=== PATIENT | male | born 1955 | race African-American/Black ===

== ENCOUNTER → 2024-10-25 | Outpatient (CLI) | payer MEDICARE ==
--- NOTE | 2024-10-25 09:05 | MR ---
EXAMINATION TYPE: MR Prostate wo/w con DATE OF EXAM: 10/25/2024 8:13 AM COMPARISON: None. CLINICAL INDICATION: Male, 69 years old with history of C61 MALIGNANT NEOPLASM OF PROS; Prostate canc er. TECHNIQUE: Multi-planar, multi-sequence imaging of the pelvis is performed prior to and following the uncomplicated administration of bolus intravenous gadolinium. IV Contrast: 8 mL Gadobutrol Interpretive Criteria: PI-RADS v2.1 SERUM PSA: 09-23-24 = 7.9 SURGICAL PATHOLOGY: 03/03/2024, positive left apex and left mid lateral Maldonado 4+3=7. FINDINGS: Prostatic dimensions: 5.7 x 6.7 x 5.0 cm. Ellipsoid Volume:99.98 (PSA density=0.08 ng/mL/mL) CENTRAL GLAND (Central and Transition Zones/CZ+TZ): Partially circumscribed lesion which is low ADC is not significantly higher signal on DWI in the righ t anterior central gland possibly representing BPH nodule measuring up to 18 x 12 mm. No discrete enh ancement separate from surrounding prostate gland. There is some heterogenous diffuse enhancement wit hin the central gland. No fistula isn't visualized. (PI-RADS 3) PERIPHERAL ZONE (PZ): Thin due to BPH of the central gland. No evidence of masslike abnormality, or localized perfusional h ypervascularity, to further suggest a focus of clinically significant prostate cancer. (PI-RADS 2) SEMINAL VESICLES (SV): Symmetric and unremarkable. PERIPROSTATIC TISSUES: Unremarkable. LYMPH NODES: No enlarged pelvic lymph node. REMAINING PELVIS: Bladder wall is within normal limits given distention. No abnormal free or organized intrapelvic fluid collection. No pathologic bowel dilation or mural thickening. Left fat containing inguinal hernia OSSEOUS STRUCTURES: No suspicious osseous abnormality. Heterogenous bone marrow including the right pubic symphysis. No d iscrete lesions identified. Left lower abdominal tubular structure possibly representing a large left common iliac artery aneurys m measuring up to 6.9 x 7.5 cm. Bifemoral bypass also present. IMPRESSION: 1. PI-RADS 3 lesion in the right central gland mid gland versus BPH nodule measuring 18 x 12 mm. 2. Substantial BPH, estimated gland volume 99.98 mL. 3. No suspicious osseous lesion. No lymphadenopathy. No evidence of prostate adenocarcinoma involving the periprostatic tissues. 4. Large left common iliac artery aneurysm suggested, no priors are available for comparison. CTA abd omen and pelvis recommended for evaluation of if not already performed. [facility], , 10/25/2024 9:03 AM
== END | disposition home or self-care (01) ==
LOC: RADMRIMAIN 06:53
PROVIDERS: ATTEND Urology
DX: C61 Malignant neoplasm of prostate (principal)
CPT/HCPCS: 72197; A9585

== ENCOUNTER → 2024-11-29 | Outpatient (CLI) | payer MEDICARE ==
[2024-11-29 19:13] LABS: BUN/Creat Ratio 13.88 Ratio (12.00-20.00); Blood Urea Nitrogen 11.1 mg/dL (9.0-27.0); Calcium 10.2 mg/dL (8.7-10.3); Carbon Dioxide 25.7 mmol/L (21.6-31.8); Chloride 105 mmol/L (96-109); Glucose 104 mg/dL (70-110); Potassium 4.9 mmol/L (3.5-5.5); Sodium 140 mmol/L (135-145)
[2024-11-29 20:03] LABS: Basophils # (A) 0.02 X 10*3/uL (0.00-0.10); Basophils % (A) 0.4 %; Eosinophils # (A) 0.06 X 10*3/uL (0.04-0.35); Eosinophils % (A) 1.2 %; HCT 46.8 % (39.6-50.0); HGB 14.7 g/dL (13.0-17.0); Lymphocytes # (A) 1.69 X 10*3/uL (0.90-5.00); Lymphocytes % (A) 34.3 %; MCH 26.3 pg (27.0-32.0); MCHC 31.4 g/dL (32.0-37.0); MCV 83.7 FL (80.0-97.0); Mean Platelet Volume 11.1 FL (9.5-12.2); Monocytes % (A) 10.1 %; NRBC Per 100 WBC 0 X 10*3/uL (0.00-0.01); Neutrophils # (A) 2.65 X 10*3/uL (1.80-7.70); Neutrophils % (A) 53.8 %; Platelet Count 242 X 10*3/uL (140-440); RBC 5.59 X 10*6/uL (4.40-5.60); RDW 15.1 % (11.5-14.5); WBC 4.93 X 10*3/uL (4.50-10.00)
== END | disposition home or self-care (01) ==
LOC: LABPAT 12:37
PROVIDERS: ATTEND Urology
DX: Z01.812 Encounter for preprocedural laboratory examination (principal); C61 Malignant neoplasm of prostate
CPT/HCPCS: 80048; 85025

== ENCOUNTER 2024-12-15 12:49 | Day surgery (SDC) | payer MEDICARE ==
--- NOTE | 2024-12-13 20:56 | P.GSHP ---
History of Present Illness H&P Date: 12/13/24 Chief Complaint: Prostate cancer The patient is a 69-year-old male diagnosed with prostate cancer in February 2024 (Maldonado 4+3). The patient is concerned about erectile dysfunction and thus chose to proceed with active surveillance. However, I have advised him that he is a suboptimal candidate for this. MRI of the prostate reveals a prostate volume of 100 cc, with a PI-RADS 3 lesion seen within the right central gland. - Cardiovascular Cardiovascular: Reports high blood pressure - Genitourinary (Male) Genitourinary: Reports nocturia Past Medical History Past Medical History: Cancer, Heart Failure, Diabetes Mellitus, Deep Vein Thrombosis (DVT), Hyperlipidemia, Hypertension, Myocardial Infarction ([place]) Additional Past Medical History / Comment(s): recent echo, hx heart failure before CABG per . prostate cancer cells Last Myocardial Infarction Date:: before 2008 History of Any Multi-Drug Resistant Organisms: None Reported Past Surgical History: Coronary Bypass/CABG, Heart Catheterization With Stent Additional Past Surgical History / Comment(s): colonoscopy Past Anesthesia/Blood Transfusion Reactions: No Reported Reaction Date of Last Stent Placement:: 2020 [facility] Smoking Status: Former smoker - Past Family History Brother(s) Family Medical History: Myocardial Infarction ([place]) Additional Family Medical History / Comment(s): another brother - radiation for cancer( prostate) Sister(s) Additional Family Medical History / Comment(s): , heart surgery Mother Family Medical History: Cancer Additional Family Medical History / Comment(s): breast Father Family Medical History: Cancer Additional Family Medical History / Comment(s): myeloma Medications and Allergies Home Medications Medication Instructions Recorded Confirmed Type Aspirin 81 mg PO DAILY 12/13/24 12/13/24 History Atorvastatin [Lipitor] 80 mg PO HS 12/13/24 12/13/24 History Ezetimibe [Zetia] 10 mg PO DAILY 12/13/24 12/13/24 History Metoprolol Succinate (ER) [Toprol 12.5 mg PO 1200 12/13/24 12/13/24 History Xl] Sacubitril/Valsartan [Entresto 97 1 tab PO DAILY 12/13/24 12/13/24 History mg-103 mg Tablet] metFORMIN HCL [Metformin HCl] 1,000 mg PO BID 12/13/24 12/13/24 History tadalafiL [Tadalafil] 20 mg PO DIRECTED PRN 12/13/24 12/13/24 History Allergies Allergy/AdvReac Type Severity Reaction Status Date / Time No Known Allergies Allergy Verified 12/13/24 14:27 Surgical - Exam - General well developed, well nourished, no distress - Respiratory normal respiratory effort - Rectum Rectum: normal sphincter tone, no masses, other (Prostate moderately enlarged but smooth) - Psychiatric oriented to time, oriented to person, oriented to place, speech is normal, memory intact Assessment and Plan (1) Malignant neoplasm of prostate Status: Acute Code(s): C61 - MALIGNANT NEOPLASM OF PROSTATE SNOMED Code(s): 560691129 Plan: The patient will undergo MRI-Ultrasound fusion transrectal biopsies of the prostate. The procedure has been reviewed in detail with the patient. He has been made aware of potential risks, which include anesthesia, bleeding, and infection.
[~2024-12-15 12:49] MED LIST: HYDROmorphone 0.5 MG/0.5 ML SYRINGE IVP PRN; LIDOCAINE 1% (10MG/ML) FOR IV START INTRADERMA PRN; MIDAZOLAM 2 MG/2 ML VIAL IV PRN; fentaNYL (PF) 50 MCG/ML 2 ML AMP IVP PRN
[2024-12-15] MEDS: IV FLUID CONTINUATION 1,000 ML IV ONE (13:53)
[2024-12-15 14:10] VITALS: TEMP 96.5
[2024-12-15 14:34] LABS: Glucose,Whole Blood 110 mg/dL (70-110)
[2024-12-15] MEDS: ONDANSETRON 4 MG/2 ML VIAL IVP ONE (14:35)
[2024-12-15] MEDS: DEXAMETHASONE SOD PHOSPHATE 4 MG/ML 1 ML VIAL IV ONE (14:35)
[2024-12-15] MEDS: LACTATED RINGERS 1,000 ML IV SCH (14:35)
[2024-12-15] MEDS: GENTAMICIN 40 MG/ML 2 ML VIAL IM PRN (14:39)
[2024-12-15] MEDS ORDERED: PROPOFOL 10 MG/ML 20 ML VIAL IV ONE (15:21)
--- NOTE | 2024-12-15 15:44 | P.OP ---
Date of Procedure: 12/15/24 Preoperative Diagnosis: Adenocarcinoma of the prostate Postoperative Diagnosis: Same Procedure(s) Performed: Transrectal ultrasound-guided MRI fusion biopsies of the prostate Anesthesia: MAC Surgeon: Jameson De Luna Estimated Blood Loss (ml): 5 IV fluids (ml): 300 Pathology: other (Prostate biopsies) Condition: stable Disposition: PACU Indications for Procedure: The patient is a 69-year-old male diagnosed with prostate cancer in February 2024 (Maldonado 4+3). The patient is concerned about erectile dysfunction and thus chose to proceed with active surveillance. However, I have advised him that he is a suboptimal candidate for this. MRI of the prostate reveals a prostate volume of 100 cc, with a PI-RADS 3 lesion seen within the right central gland. Operative Findings: 3 biopsies obtained from the target lesion in addition to 12 template biopsies. Description of Procedure: The patient was taken to the operating room and placed in the left lateral decubitus position. PRANEETH revealed the prostate to be enlarged but smooth. The prollie transrectal ultrasound probe was placed intrarectally. It was then placed within the stand of the [employer] MRI/TRUS Fusion for Prostate Biopsy system. The prostate was imaged in both the axial and sagittal planes, revealing a prostate volume of 77 mL. Using the Biopty gun, 3 biopsies were obtained from the right transitional zone target lesion. The remaining 12 biopsies of the peripheral zone were obtained utilizing a standard template. Once the procedure was completed, the ultrasound probe was removed. The patient tolerated the procedure well was taken to the recovery room stable condition.
[2024-12-15 15:52] VITALS: RESP 16
[2024-12-15 16:16] VITALS: BP 161/96; PULSE 83
== END 2024-12-15 16:46 | disposition home or self-care (01) ==
LOC: OR 12:49
PROVIDERS: ATTEND Urology
DX: C61 Malignant neoplasm of prostate (principal); N40.0 Benign prostatic hyperplasia without lower urinary tract symptoms; I11.0 Hypertensive heart disease with heart failure; I50.9 Heart failure, unspecified; I25.10 Atherosclerotic heart disease of native coronary artery without angina pectoris; I25.2 Old myocardial infarction; Z95.1 Presence of aortocoronary bypass graft; Z95.5 Presence of coronary angioplasty implant and graft; E11.9 Type 2 diabetes mellitus without complications; E78.5 Hyperlipidemia, unspecified; K21.9 Gastro-esophageal reflux disease without esophagitis; Z79.82 Long term (current) use of aspirin; Z79.84 Long term (current) use of oral hypoglycemic drugs; Z79.899 Other long term (current) drug therapy; Z86.718 Personal history of other venous thrombosis and embolism; Z87.891 Personal history of nicotine dependence
CPT/HCPCS: 55700; 88305; J1580; J1100; J2405; J2704

== ENCOUNTER → 2025-02-16 | Outpatient (CLI) | payer MEDICARE ==
[2025-02-16 07:59] LABS: African American GFR (CKD) >90 (>60 ml/min/1.73 sqM); Blood Urea Nitrogen 12 mg/dL (9-20); Non-African American GFR(CKD) >90 (>60 ml/min/1.73 sqM)
--- NOTE | 2025-02-16 09:46 | CT ---
EXAMINATION TYPE: CT angio abdomen pelvis CT DLP: 1712 mGycm, Automated exposure control for dose reduction was used. DATE OF EXAM: 02/16/2025 9:24 AM COMPARISON: MR prostate 10/25/2024 CLINICAL INDICATION:Male, 69 years old with history of I72.3 ANEURYSM OF ILIAC ARTERY; High blood pre ssure TECHNIQUE: Multiple thin slice sub-millimeter images were obtained through the abdomen and pelvis bef ore and after administration of contrast. Patient was given Isovue 370, 100 cc intravenously. 3-D r econstructed images and maximum intensity projection images were obtained of the abdomen, pelvis, and lower extremities. FINDINGS: CTA Abdomen and pelvis: Atherosclerotic plaquing is identified within the abdominal aorta. Fusiform d istal abdominal aortic aneurysm measuring up to 3.1 cm (series 9, image 95). There is marked aneurysm al dilatation of the left common iliac artery again measuring 7.7 x 7.1 cm (series 9, image 129). The re is large amount of eccentric mural thrombus. The opacified central portion of the aneurysm measure s up to 2.5 cm in diameter. Demonstrates heterogenous opacification. The origins of the superior mese nteric artery, renal arteries, inferior mesenteric artery, and celiac axis are patent. There are 2 bi lateral renal arteries. The right common iliac artery is widely patent. The right internal and braille typist al iliac arteries are patent. The right superficial and deep femoral arteries are widely patent. Ther e is a patent femoral-femoral bypass. The left internal iliac artery is patent. The left external shelley ac artery demonstrates contrast enhancement with slightly decreased attenuation compared to the right . There is focal high-grade stenosis at its origin. The visualized left superficial and deep femoral arteries are patent. VISCERA: The liver, spleen, adrenal glands, kidneys, pancreas, and gallbladder are not optimally enha nced due the arterial phase utilized. LIVER: Unremarkable GALLBLADDER AND BILE DUCTS: Layering increased densities within the lumen consistent with gallstones are present. No biliary ductal dilatation. PANCREAS: Unremarkable. SPLEEN: Unremarkable. ADRENAL GLANDS: Unremarkable. KIDNEYS AND URETERS: No evidence of hydronephrosis or renal calculus. The kidneys enhance symmetrical ly. Inferior right renal pole fat-containing 1.2 cm lesion consistent with an angiomyolipoma. PELVIS BLADDER: Small punctate layering calculi within the urinary bladder. REPRODUCTIVE: Coarse calcifications of the prostate gland are identified. Enlarged prostate gland johnathan suring 5.2 cm in transverse dimension. ABDOMEN & PELVIS STOMACH AND BOWEL: Moderate to large hiatal hernia with approximately a third of the stomach intratho racic.The appendix is within normal limits. Scattered distal colonic diverticulosis without evidence for acute diverticulitis. No focal bowel wall thickening or surrounding inflammatory changes. No evid ence of bowel obstruction. PERITONEUM: No evidence of pneumoperitoneum or free fluid. MUSCULOSKELETAL: No acute osseous abnormalities LYMPH NODES: No evidence for lymphadenopathy. SOFT TISSUE/ABDOMINAL WALL: Tiny fat filled umbilical hernia. Fat filled left inguinal hernia with co marga protruding its opening LOWER CHEST: Surgical clips within the anterior pericardial space. Fat filled epigastric hernia anter ior to the xiphoid process with defect measuring up to 3.4 cm in diameter. The visualized lung bases are clear. IMPRESSION: 1. Redemonstration of large left common iliac artery aneurysm measuring up to 7.7 cm. Vascular surgi miracle consultation is recommended. High-grade stenosis at the origin of the left external iliac artery. Patent femoral-femoral bypass. 2. Distal abdominal aortic aneurysm measuring up to 3.1 cm. 3. Moderate to large hiatal hernia with a third of the stomach intrathoracic. 4. Colonic diverticulosis without evidence for acute diverticulitis. 5. Cholelithiasis. 6. Prostatomegaly. 7. Urinary bladder calculi. 8. 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 [facility], , 02/16/2025 9:44 AM
== END | disposition home or self-care (01) ==
LOC: RADCTMAIN 07:15
PROVIDERS: ATTEND Internal Medicine
DX: K44.9 Diaphragmatic hernia without obstruction or gangrene (principal); K57.30 Diverticulosis of large intestine without perforation or abscess without bleeding; K80.20 Calculus of gallbladder without cholecystitis without obstruction; N21.0 Calculus in bladder; I72.3 Aneurysm of iliac artery; I71.40 Abdominal aortic aneurysm, without rupture, unspecified; N40.0 Benign prostatic hyperplasia without lower urinary tract symptoms
CPT/HCPCS: 82565; 84520; 36415; 74174; Q9967

== ENCOUNTER → 2025-04-12 | Outpatient (CLI) | payer MEDICARE ==
[2025-04-12 18:22] LABS: Basophils # (A) 0.03 X 10*3/uL (0.00-0.10); Basophils % (A) 0.5 %; Eosinophils # (A) 0.07 X 10*3/uL (0.04-0.35); Eosinophils % (A) 1.2 %; HCT 38.5 % (39.6-50.0); HGB 11.9 g/dL (13.0-17.0); Lymphocytes % (A) 30.2 %; MCH 25.9 pg (27.0-32.0); MCHC 30.9 g/dL (32.0-37.0); MCV 83.7 FL (80.0-97.0); Mean Platelet Volume 9.7 FL (9.5-12.2); Monocytes # (A) 0.74 X 10*3/uL (0.20-1.00); Monocytes % (A) 13.1 %; NRBC Per 100 WBC 0 X 10*3/uL (0.00-0.01); Neutrophils # (A) 3.07 X 10*3/uL (1.80-7.70); Neutrophils % (A) 54.6 %; Platelet Count 262 X 10*3/uL (140-440); RDW 15.9 % (11.5-14.5); WBC 5.63 X 10*3/uL (4.50-10.00)
[2025-04-12 18:57] LABS: BUN/Creat Ratio 14.11 Ratio (12.00-20.00); Blood Urea Nitrogen 12.7 mg/dL (9.0-27.0); Calcium 9.8 mg/dL (8.7-10.3); Carbon Dioxide 22.6 mmol/L (21.6-31.8); Chloride 105 mmol/L (96-109); Glucose 102 mg/dL (70-110); Potassium 4.7 mmol/L (3.5-5.5); Sodium 139 mmol/L (135-145)
== END | disposition home or self-care (01) ==
LOC: LABPAT 14:56
PROVIDERS: ATTEND Urology
DX: Z01.812 Encounter for preprocedural laboratory examination (principal); C61 Malignant neoplasm of prostate
CPT/HCPCS: 80048; 85025

== ENCOUNTER 2025-04-13 08:04 | Day surgery (SDC) | payer MEDICARE ==
--- NOTE | 2025-04-12 19:46 | P.GSHP ---
History of Present Illness H&P Date: 04/12/25 Chief Complaint: Prostate cancer The patient is a 69-year-old male diagnosed with prostate cancer in February 2024 (Maldonado 4+3). The patient is concerned about erectile dysfunction and thus chose to proceed with active surveillance. However, I have advised him that he is a suboptimal candidate for this. MRI of the prostate revealed a prostate volume of 100 cc, with a PI-RADS 3 lesion seen within the right central gland. He underwent MRI fusion biopsies in November 2024. He was found to have Maldonado 7 adenocarcinoma in 4 of 13 regions. He is agreeable to radiation therapy and now comes for SpaceOAR implant to reduce the risk of radiation-induced rectal toxicity. - Cardiovascular Cardiovascular: Reports high blood pressure - Genitourinary (Male) Genitourinary: Reports nocturia Past Medical History Past Medical History: Cancer, Heart Failure, Diabetes Mellitus, Deep Vein Thrombosis (DVT), Hyperlipidemia, Hypertension, Myocardial Infarction ([place]), Prostate Disorder Additional Past Medical History / Comment(s): hx heart failure before CABG per , prostate cancer, aortic stent at [place] 03/20/25 and hospitalized overnight again 03/22/25 at [place] for constipation Last Myocardial Infarction Date:: before 2008 History of Any Multi-Drug Resistant Organisms: None Reported Past Surgical History: Coronary Bypass/CABG, Heart Catheterization With Stent Additional Past Surgical History / Comment(s): colonoscopy , aortic stent 03/20/25 Past Anesthesia/Blood Transfusion Reactions: No Reported Reaction Date of Last Stent Placement:: 2020 [facility] Smoking Status: Former smoker - Past Family History Brother(s) Family Medical History: Myocardial Infarction ([place]) Additional Family Medical History / Comment(s): another brother - radiation for cancer( prostate) Sister(s) Additional Family Medical History / Comment(s): , heart surgery Mother Family Medical History: Cancer Additional Family Medical History / Comment(s): breast Father Family Medical History: Cancer Additional Family Medical History / Comment(s): myeloma Medications and Allergies Home Medications Medication Instructions Recorded Confirmed Type Aspirin 81 mg PO DAILY 12/13/24 04/10/25 History Atorvastatin [Lipitor] 80 mg PO HS 12/13/24 04/10/25 History Ezetimibe [Zetia] 10 mg PO DAILY 12/13/24 04/10/25 History Metoprolol Succinate (ER) [Toprol 12.5 mg PO HS 12/13/24 04/10/25 History Xl] metFORMIN HCL [Metformin HCl] 1,000 mg PO BID 12/13/24 04/10/25 History tadalafiL [Tadalafil] 20 mg PO DIRECTED PRN 12/13/24 04/10/25 History Clopidogrel [Plavix] 75 mg PO DAILY 04/10/25 04/10/25 History Losartan [Cozaar] 25 mg PO DAILY 04/10/25 04/10/25 History Allergies Allergy/AdvReac Type Severity Reaction Status Date / Time No Known Allergies Allergy Verified 04/10/25 14:54 Surgical - Exam - General well developed, well nourished, no distress - Respiratory normal respiratory effort - Rectum Rectum: normal sphincter tone, no masses, other (Prostate enlarged but smooth) - Psychiatric oriented to time, oriented to person, oriented to place, speech is normal, memory intact Assessment and Plan (1) Malignant neoplasm of prostate Status: Acute Code(s): C61 - MALIGNANT NEOPLASM OF PROSTATE SNOMED Code(s): 359169092 Plan: The SpaceOar implant has been reviewed in detail with the patient. He understands that the rationale for this is to create separation between the prostate and rectum, thus reducing the risk of radiation proctitis. The material begins to breakdown 12-13 weeks following implant, and is reabsorbed by the body. Risks include anesthesia, bleeding, infection, and perineal discomfort. He understands that if the rectal wall is perforated the procedure will need to be aborted.
[~2025-04-13 08:04] MED LIST changes: -HYDROmorphone 0.5 MG/0.5 ML SYRINGE IVP PRN; -MIDAZOLAM 2 MG/2 ML VIAL IV PRN; -fentaNYL (PF) 50 MCG/ML 2 ML AMP IVP PRN
[2025-04-13] MEDS: IV FLUID CONTINUATION 1,000 ML IV ONE (09:24)
[2025-04-13] MEDS: LACTATED RINGERS 1,000 ML IV SCH (09:49)
[2025-04-13 09:50] LABS: Glucose,Whole Blood 99 mg/dL (70-110)
[2025-04-13] MEDS ORDERED: PROPOFOL 10 MG/ML 20 ML VIAL IV ONE (10:28)
[2025-04-13] MEDS ORDERED: MIDAZOLAM 2 MG/2 ML VIAL ONE (10:28)
[2025-04-13] MEDS ORDERED: fentaNYL (PF) 50 MCG/ML 2 ML AMP ONE (10:28)
[2025-04-13] MEDS: ceFAZolin 2 GM in DEXTROSE 5% IN WATER 50 ML IVPB PRN (10:34)
[2025-04-13] MEDS: LIDOCAINE 2% INJ 20 MG/ML SQ ONE (10:40)
--- NOTE | 2025-04-13 10:55 | P.OP ---
Date of Procedure: 04/13/25 Preoperative Diagnosis: Adenocarcinoma of the prostate Postoperative Diagnosis: Same Procedure(s) Performed: SpaceOAR Gel Implant Anesthesia: MAC Surgeon: Jameson De Luna Estimated Blood Loss (ml): 5 IV fluids (ml): 200 Pathology: none sent Condition: stable Disposition: PACU Indications for Procedure: The patient is a 69-year-old male diagnosed with prostate cancer in February 2024 (Maldonado 4+3). The patient is concerned about erectile dysfunction and thus chose to proceed with active surveillance. However, I have advised him that he is a suboptimal candidate for this. MRI of the prostate revealed a prostate volume of 100 cc, with a PI-RADS 3 lesion seen within the right central gland. He underwent MRI fusion biopsies in November 2024. He was found to have Maldonado 7 adenocarcinoma in 4 of 13 regions. He is agreeable to radiation therapy and now comes for SpaceOAR implant to reduce the risk of radiation-induced rectal toxicity. Operative Findings: 10 to 11 mm separation created between prostate and rectum. Description of Procedure: The patient was taken to the operating room and placed in the dorsolithotomy position, with his legs supported in Brice stirrups. The external genitalia was prepped and draped sterilely. The Klip transrectal ultrasound probe was placed intrarectally. The prostate was imaged. The probe was then placed within the stabilizing stand. A spinal needle was advanced under ultrasonic guidance to the level of the urogenital diaphragm, and lidocaine was used to infiltrate the tissues as the needle was withdrawn. Next, the SpaceOAR needle was passed through the midline of the perineum, 1-2 cm anterior to the anal opening. The needle was slowly advanced under ultrasonic guidance until the needle tip was located within the fat plane between the prostate and rectum, at the level of the mid prostate gland. The needle was confirmed to be midline on the axial imaging. A small amount of normal saline was injected for hydrodissection. Next, the SpaceOAR components were mixed and loaded into the Y connector per protocol. The Y connector was then connected to the needle, and the components were injected slowly over a course of approximately 12 seconds. A total of 11 ml was injected. Significant distance was created between the prostate and rectum, as desired. It should be noted that at no point was there any concern of rectal perforation. The needle was withdrawn, as well as the transrectal ultrasound probe, and the procedure was terminated. The patient tolerated the procedure well and was taken to the recovery room in stable condit ion.
[2025-04-13 11:05] VITALS: TEMP 97
[2025-04-13 11:44] LABS: Glucose,Whole Blood 93 mg/dL (70-110)
[2025-04-14 08:34] VITALS: BP 142/68; PULSE 72; RESP 18
== END 2025-04-13 12:15 | disposition home or self-care (01) ==
LOC: OR 08:04
PROVIDERS: ATTEND Urology
DX: C61 Malignant neoplasm of prostate (principal); I11.0 Hypertensive heart disease with heart failure; I50.9 Heart failure, unspecified; E11.9 Type 2 diabetes mellitus without complications; E78.5 Hyperlipidemia, unspecified; I25.2 Old myocardial infarction; Z79.02 Long term (current) use of antithrombotics/antiplatelets; Z79.82 Long term (current) use of aspirin; Z79.84 Long term (current) use of oral hypoglycemic drugs; Z79.899 Other long term (current) drug therapy; Z87.891 Personal history of nicotine dependence; Z86.718 Personal history of other venous thrombosis and embolism; Z95.1 Presence of aortocoronary bypass graft; Z95.5 Presence of coronary angioplasty implant and graft; Z80.42 Family history of malignant neoplasm of prostate
CPT/HCPCS: 55874; J0690; J2003

== ENCOUNTER → 2025-06-13 | Outpatient (CLI) | payer MEDICARE ==
--- NOTE | 2025-06-13 13:20 | XR ---
EXAMINATION TYPE: XR chest 2V DATE OF EXAM: 06/13/2025 10:48 AM COMPARISON: None CLINICAL INDICATION: Male, 69 years old with history of I50.9 CHF, , TECHNIQUE: Frontal and lateral views FINDINGS: Heart upper limits of normal in size. Median sternotomy wires are present with post-CABG clips in the mediastinum. Artery vasculature within normal limits. No consolidation or pleural effusion. IMPRESSION: Borderline heart size. No acute process seen. [facility], Workstation: [id number], 06/13/2025 1:17 PM
== END | disposition home or self-care (01) ==
LOC: RADXRMAIN 10:24
PROVIDERS: ATTEND Internal Medicine
DX: I50.9 Heart failure, unspecified (principal)
CPT/HCPCS: 71046